=== PATIENT | male | born 1970 | race Caucasian/White ===

== ENCOUNTER 2019-06-16 07:13 | Emergency (ER) | payer OTHER ==
[~2019-06-16] VITALS: Ht 175.3 cm; Wt 93.4 kg
[2019-06-16 07:18] VITALS: Ht 175.3 cm; Wt 93.4 kg
[2019-06-16 08:01] LABS: BASOPHIL % 0.6 % (0-2); PLATELET COUNT 282 x10^3mcL (130-400); RED CELL DISTRIBUTION WIDTH 13.1 % (11.5-14.5)
[2019-06-16 08:13] LABS: CALCIUM 8.8 mg/dL (8.5-10.1); CARBON DIOXIDE 26.9 mmol/L (21-32); CHLORIDE SERUM 104 mmol/L (98-107); CREATININE SERUM 1.1 mg/dL (0.7-1.3); GFR1 > 60 mL/min; GLUCOSE SERUM 103 mg/dL (74-106); POTASSIUM SERUM 3.9 mmol/L (3.5-5.1); SODIUM SERUM 140 mmol/L (136-145)
[2019-06-16 08:17] LABS: ALBUMIN 3.8 g/dL (3.4-5.0); ALKALINE PHOSPHATASE 105 U/L (46-116); ALT/SGPT 45 U/L (16-63); AST/SGOT 14 U/L (15-37); BILIRUBIN TOTAL 1.08 mg/dL (0.20-1.00); LIPASE 74 IU/L (73-393); TOTAL PROTEIN, SERUM 7.8 g/dL (6.4-8.2)
[2019-06-16 08:46] LABS: UA SPECIFIC GRAVITY <=1.005 (1.005-1.035); microscopic required? YES; urine erythrocyte 1+ (NEGATIVE)
[2019-06-16 09:48] VITALS: BP 129/72
== END 2019-06-16 09:48 | disposition home or self-care (01) ==
LOC: ED 07:13
PROVIDERS: Emergency Medicine
DX: K57.32 Diverticulitis of large intestine without perforation or abscess without bleeding (principal)
CPT/HCPCS: 36415